=== PATIENT | female | born 1980 | race Caucasian/White ===

== ENCOUNTER 2023-05-12 09:54 | Emergency (ER) | payer BC ==
[2023-05-12] MEDS: Diphtheria,Pertussis(Acell),Tetanus Vaccine 0.5 ML Syringe IM ONE (10:28)
[2023-05-12] MEDS: Lidocaine 1% 5 ML VIAL INJECT ONE ×2 (10:30→11:01)
[2023-05-12] MEDS: Lidocaine 1% 5 ML VIAL ONE (10:32)
[2023-05-12] MEDS: Bacitracin/Neomycin/Polymyxin B Oint 0.9 GM U/D Packet TOP ONE (10:50)
[2023-05-12] MEDS: Bacitracin/Neomycin/Polymyxin B Oint 0.9 GM U/D Packet ONE (10:57)
== END 2023-05-12 10:55 | disposition home or self-care (01) ==
LOC: KA.ED 09:54
DX: S61.210A Laceration without foreign body of right index finger without damage to nail, initial encounter (principal); Z79.899 Other long term (current) drug therapy; Z23 Encounter for immunization; W26.0XXA Contact with knife, initial encounter
CPT/HCPCS: 12002; 90471; 90715; 99282-25; J3490

== ENCOUNTER 2023-08-03 06:50 | Emergency (ER) | payer BC ==
[2023-08-03] MEDS ORDERED: Sodium Chloride 0.9% 10 ML Syringe FLUSH PRN (07:13)
[2023-08-03] MEDS ORDERED: Naloxone 0.4 MG/ML SDV IVPUSH PRN (07:13)
[2023-08-03] MEDS: HYDROmorphone 1 MG/ML Syringe IVPUSH ONE ×2 (07:30→10:37)
[2023-08-03 07:32] LABS: BASOPHILS ABSOLUTE AUTO 0.01 10^3/uL (0.00-0.10); BASOPHILS PERCENT AUTO 0.1 % (0.0-1.0); EOSINOPHILS ABSOLUTE AUTO 0.02 10^3/uL (0.10-0.30); EOSINOPHILS PERCENT AUTO 0.2 % (1.0-3.0); HEMATOCRIT 43.7 % (37.0-47.0); IMMATURE GRAN ABSOLUTE AUTO 0.01 10^3/uL (0.00-0.50); IMMATURE GRAN PERCENT AUTO 0.1 % (0.0-5.0); LYMPHOCYTES ABSOLUTE AUTO 1.29 10^3/uL (1.00-4.00); LYMPHOCYTES PERCENT AUTO 15.7 % (20.0-40.0); MEAN CORPUSCULAR HEMOGLOBIN 31.4 pg (27.0-31.0); MEAN CORPUSCULAR HGB CONC 34.3 g/dL (32.0-36.0); MEAN CORPUSCULAR VOLUME 91.4 fL (82.0-92.0); MEAN PLATELET VOLUME 11.2 fL (7.4-10.4); MONOCYTES PERCENT AUTO 8.5 % (2.0-8.0); NEUTROPHILS ABSOLUTE AUTO 6.19 10^3/uL (2.50-7.00); NEUTROPHILS PERCENT AUTO 75.4 % (50.0-70.0); PLATELET COUNT,PLT 182 10^3/uL (150-400); RED BLOOD CELL COUNT 4.78 10^6/uL (3.80-5.50); WHITE BLOOD CELL COUNT,WBC 8.22 10^3/uL (5.00-10.00)
[2023-08-03 07:48] LABS: ALANINE AMINOTRANSFERASE,ALT 17 U/L (14-63); ALKALINE PHOSPHATASE 73 U/L (46-116); AMYLASE 40 U/L (25-125); ANION GAP 15.3 mmol/L (5-15); ASPARTATE AMNIOTRANSFERASE,AST 20 U/L (15-37); BILIRUBIN TOTAL 0.6 mg/dL (0.2-1.0); BLOOD UREA NITROGEN,BUN 8 mg/dL (7-18); CALCIUM 8.3 mg/dL (8.7-10.3); CHLORIDE,CL 99 mmol/L (98-107); CREATININE 0.68 mg/dL (0.51-1.17); EST CRCL DRUG DOSING (CG) 108.72 mL/min; GLUCOSE RANDOM 105 mg/dL (70-140); LIPASE 43 U/L (16-77); POTASSIUM,K 3.3 mmol/L (3.5-5.1); PROTEIN TOTAL,TP 7.6 g/dL (6.4-8.2); SODIUM,NA 136 mmol/L (136-145)
[2023-08-03 07:51] LABS: ESTIMATED GFR 111 mL/min (>=60)
[2023-08-03 07:52] LABS: HCG QUALITATIVE,SERUM NEGATIVE (NEGATIVE)
[2023-08-03] MEDS: Iopamidol 755 Mg/ML 100 ML Bottle IV ONE (08:01)
[2023-08-03] MEDS: Sodium Chloride 0.9% 50 ML IV SCH (08:01)
[2023-08-03] MEDS: Sodium Chloride 0.9% 1,000 ML IV ONE (08:27)
[2023-08-03] MEDS: Sodium Chloride 0.9% 1,000 ML ONE (08:34)
[2023-08-03 09:10] LABS: BILIRUBIN,URINE NEGATIVE (NEGATIVE); COLOR,URINE YELLOW (YELLOW); GLUCOSE,URINE NEGATIVE (NEGATIVE); KETONES,URINE TRACE mg/dL (NEGATIVE); LEUKOCYTE ESTERASE,URINE NEGATIVE (NEGATIVE); NITRITE,URINE NEGATIVE (NEGATIVE); OCCULT BLOOD,URINE NEGATIVE (NEGATIVE); PH,URINE 5.5 (5.0-9.0); PROTEIN,URINE NEGATIVE (NEGATIVE)
[2023-08-03 09:15] LABS: APPEARANCE,URINE CLEAR (CLEAR)
== END 2023-08-03 11:52 | disposition home or self-care (01) ==
LOC: KA.ED 06:50
DX: N85.7 Hematometra (principal); R10.2 Pelvic and perineal pain
CPT/HCPCS: 74177; 80053; 81003; 82150; 83690; 84703; 85025; 96361; 96374; 96376; 99284; 99284-25; J1170; J3490; J7030; Q9967